=== PATIENT | female | born 1990 | race Caucasian/White ===

== ENCOUNTER 2020-06-03 00:22 | Emergency (ER) | payer SELFPAY ==
--- NOTE | ~2020-06-03 | CT_ITS ---
EXAMINATION: CT brain wo con DATE: 06/03/2020 01:28 INDICATION: Altered mental state TECHNIQUE: Computed tomography (CT) of the head was performed without intravenous contrast. The mA wa s adjusted according to patient size. Iterative reconstruction technique was employed. Exam dose: 60 5.33 mGy-cm total exam DLP. COMPARISON: None FINDINGS: No intracranial mass lesion or hemorrhage or cerebrovascular accident. No midline shift or mass effect effect. Normal cardenas-white matter differentiation. Normal ventricular size. No subdural or epidural hematoma. No fracture or bone destruction of the cranial vault. Included paranasal sinuses and mastoid air cell s are normally developed and aerated. IMPRESSION: Normal examination Reviewed, dictated and finalized at [facility]. Reviewed, dictated and finalized at [facility]. [employer]CH[employer]ISING IMPRESSION: Normal examination
--- NOTE | ~2020-06-03 | XR_ITS ---
XR chest 1V DATE: 06/03/2020 01:31 INDICATION: Altered mental state TECHNIQUE: AP chest COMPARISON: None FINDINGS: Cardiac and mediastinal sweats are unremarkable. Lungs are clear of infiltrate or consolida tion. No pleural effusion or pulmonary vascular congestion or pneumothorax. IMPRESSION: No active cardiac pulmonary disease Reviewed, dictated and finalized at location [facility]. [employer] SUPERVISOR
[2020-06-03 00:28] VITALS: BP 120/69; PULSE 86; RESP 17; TEMP 36.8; O2SAT 100
--- NOTE | 2020-06-03 00:35 | ED.GENADULT ---
HPI - General Adult General Chief complaint: Altered Mental Status Stated complaint: confused History of Present Illness HPI narrative: Patient presents emergency department via EMS for altered mental status. Patient is currently very sleepy in bed and is a poor historian she states she did take Xanax tonight but denies any other drug use she states she was seen out with some new friends this evening patient denies any recent illness she was found to gas station with police and says she was her other sister but they cannot find her sister or her other friend she said she was with and secondary to the patient being awake and alert x2 patient was transported to the emergency department for further evaluation Review of Systems Review of Systems: Narrative: Gen.: Denies fevers or chills Eyes: Denies eye pain or visual change ENT: Denies congestion Respiratory: Denies shortness of breath or cough CV: Denies chest pain GI: Denies abdominal pain nausea, emesis or diarrhea Musculoskeletal: Denies back pain or muscle pain Neuro: Denies headache or weakness Skin: Denies rash Except as documented, all other systems reviewed and negative [facility] Past Medical History Medical History (Updated 06/03/20 @ 07:01 by Tay Fox DO) Patient denies significant medical history Social History Social History (Updated 06/03/20 @ 06:26 by Tay Fox DO) Smoking status: Never smoker Exam Narrative: Exam Narrative: APPEARANCE: Sleeping in bed will awaken to verbal stimuli and answer few questions and fall back asleep EYES: PERRL HEENT: Normocephalic, atraumatic, OMM RESPIRATORY: No respiratory distress Clear to auscultation bilaterally with no rhonchi wheezing or rales. CARDIOVASCULAR: Regular rate and rhythm without murmurs rubs or gallops. ABDOMINAL: Soft, nontender, nondistended, no rebound or guarding MUSCULOSKELETAl: Moves all extremities. No clubbing, cyanosis or edema. NEURO: Awake and alert x 2 Following commands, speech normal, no focal deficits moves all extremities SKIN:: Warm, dry. No rashes lesions or abrasions PSYCHIATRIC: Normal affect/mood, Course Course Emergency Course: Patient is now much more awake and alert currently ANO x4 answering all questions states she is hungry notes that he just recently got out [facility] ago states she was out with new friends tonight and is unsure of exactly what happened she denies any known drug use patient does states she takes Xanax I did discuss with the patient amphetamine seen in urine drug screen she denies any known amphetamine use patient states that the Xanax she got last night she received from a friend and states she was told it was a Xanax but is unsure exactly what the medication was Patient is able to get up and ambulate in the ED as well as eat and drink with no difficulty Discussed with patient results of workup and diagnosis. Discussed need for follow-up with primary care, proper use of medication, and reasons to return to the emergency department. Patient understands and agrees to current treatment plan Vital Signs Vital signs: Vital Signs Temperature 98.2 F 06/03/20 00:28 Pulse Rate 86 06/03/20 00:28 Respiratory Rate 17 06/03/20 00:28 Blood Pressure 120/69 06/03/20 00:28 Pulse Oximetry 100 06/03/20 00:28 Temperature 98.2 F 06/03/20 00:28 Pulse Rate 75 06/03/20 05:47 Respiratory Rate 21 H 06/03/20 05:47 Blood Pressure 105/66 06/03/20 05:47 Pulse Oximetry 100 06/03/20 05:47 Medical Decision Making Vital Signs Vital Signs: Vital Signs Temperature 98.2 F 06/03/20 00:28 Pulse Rate 86 06/03/20 00:28 Respiratory Rate 17 06/03/20 00:28 Blood Pressure 120/69 06/03/20 00:28 Pulse Oximetry 100 06/03/20 00:28 Temperature 98.2 F 06/03/20 00:28 Pulse Rate 75 06/03/20 05:47 Respiratory Rate 21 H 06/03/20 05:47 Blood Pressure 105/66 06/03/20 05:47 Pulse Oximetry 100 06/03/20 05:47 Lab Data R
--- NOTE | 2020-06-03 00:40 | ECG_ITS ---
Measurements Intervals [place] Rate: 76 P: 35 MN: 149 QRS: 44 QRSD: 93 T: 41 QT: 383 QTc: 433 Interpretive Statements SINUS RHYTHM MINIMAL Q WAVES- INFERIOR LEADS BORDERLINE ECG Electronically Signed On 06-03-2020 7:30:53 CLASSICS PROFESSOR by Renny Flaherty D.O.
[2020-06-03 00:51] LABS: Basophils Percent Auto 0.6 % (0.2-1.2); Eosinophils Absolute Auto 0.1 K/mm3 (0-0.3); Eosinophils Percent Auto 1.8 % (0-4.4); Hemoglobin 13.3 g/dL (12.0-15.0); Immature Granulocyte Absolute 0.01 K/mm3 (0.00-0.031); Immature Granulocyte Percent A 0.2 % (0-0.5); Lymphocytes Absolute Auto 2.33 K/mm3 (0.9-3.2); Lymphocytes Percent Auto 37.8 % (18.3-44.2); Mean Corpuscular HGB Conc 33.3 g/dl (32-36); Mean Corpuscular Hemoglobin 30.4 pg (26-34); Mean Corpuscular Volume 91.5 fl (80-100); Mean Platelet Volume 11.7 fl (7.4-10.4); Monocytes Absolute Auto 0.7 K/mm3 (0.1-0.6); Monocytes Percent Auto 10.5 % (2.6-8.5); Neutrophils Percent Auto 49.1 % (45.5-73.1); Platelet Count Result 213 k/mm3 (150-375); Red Blood Count 4.37 M/mm3 (4.2-5.4); Red Cell Distribution Width 13.5 % (11.5-14.5); White Blood Count 6.2 K/mm3 (4.5-10.0)
[2020-06-03 00:59] LABS: INR 0.9
[2020-06-03 01:00] LABS: Partial Thromboplastin Time 27.6 SECONDS (22.3-36.8)
[2020-06-03 01:05] LABS: Alanine Aminotransferase 88 U/L (4-35); Albumin Level 4.1 g/dL (3.5-5.1); Alkaline Phosphatase 98 U/L (38-126); Anion Gap 5 mmol/L (8-16); Aspartate Amino Transferase 92 U/L (14-36); Bilirubin,Total 0.6 mg/dL (0.2-1.3); Blood Urea Nitrogen 14 mg/dL (7-17); Calcium 9.1 mg/dL (8.4-10.2); Carbon Dioxide 29 mmol/L (22-30); Chloride 104 mmol/L (98-107); Estimated Glomerular Filt Rate > 60; Glucose 92 mg/dL (65-105); Potassium 3.8 mmol/L (3.4-5.0); Sodium 138 mmol/L (137-145)
[2020-06-03 01:06] LABS: Ethanol < 10 mg/dL (<10)
[2020-06-03 01:13] LABS: Add Urine Microscopic? YES; Appearance Urine Clear (Clear); Bacteria Urine Trace /hpf; Bilirubin Urine Negative (Negative); Blood Urine 1+ (Negative); Color Urine Yellow (Yellow); Glucose Urine UA Negative (Negative); Ketones Urine Negative (Negative); Leukocyte Esterase Ur Trace LEU/UL (Negative); Mucus Urine Rare /lpf; Nitrate Urine Negative (Negative); Protein Urine Negative (Negative); Specific Grav Ur 1.011 (1.001-1.035); Squamous Epithelial Cell Urine Rare /hpf (Few); Urobilinogen Urine Negative mg/dL (<2.0); WBC Urine 0-3 /hpf
--- NOTE | 2020-06-03 01:20 | PC.NURSE ---
pt to ct via stretcher
[2020-06-03 01:27] LABS: Barbiturate Screen Urine Negative (Negative); Benzodiazepines Screen Urine Positive (Negative)
[2020-06-03 01:34] LABS: Cannabinoid Screen Urine Negative (Negative); Cocaine Screen Urine Negative (Negative); Methadone Screen Urine Negative (Negative); Opiate Screen Urine Negative (Negative); Phencyclidine Screen Urine Negative (Negative)
[2020-06-03 01:39] VITALS: BP 123/78; PULSE 74; RESP 18; O2SAT 100
[2020-06-03 02:09] LABS: Amphetamine Screen Urine Positive (Negative)
[2020-06-03 02:16] VITALS: BP 114/74; PULSE 77; RESP 18; O2SAT 100
[2020-06-03 03:23] VITALS: BP 110/74; PULSE 82; RESP 16; O2SAT 99
[2020-06-03 05:24] VITALS: BP 91/52; PULSE 99; RESP 23; O2SAT 99
[2020-06-03 05:47] VITALS: BP 105/66; PULSE 75; RESP 21; O2SAT 100
--- NOTE | 2020-06-03 06:28 | PC.NURSE ---
md gave verbal order to ambulate pt. pt did not have steady gait and was instructed to sit back down. pt given food and drink, sitting up in bed, answering all questions appropriately.
== END 2020-06-03 07:32 | disposition home or self-care (01) ==
PROVIDERS: Emergency Provider Emergency Medicine
DX: R41.82 Altered mental status, unspecified (principal); F15.90 Other stimulant use, unspecified, uncomplicated; F13.90 Sedative, hypnotic, or anxiolytic use, unspecified, uncomplicated; R94.31 Abnormal electrocardiogram [ECG] [EKG]
CPT/HCPCS: 36415; 70450; 71045; 80053; 80307; 81001; 81025; 85025; 85610; 85730; 93005; 99284